=== PATIENT | female | born 1980 | race Caucasian/White ===

== ENCOUNTER 2022-11-23 02:52 | Emergency (ER) | payer BC ==
[~2022-11-23] VITALS: Ht 180.3 cm; Wt 98.6 kg
[2022-11-23 03:06] VITALS: BP 125/92
[2022-11-23] MEDS ORDERED: HYDROcodone/acetaminophen 10/325mg tab PO STA (03:11)
[2022-11-23] MEDS ORDERED: HYDROcodone/acetaminophen 5mg/325mg tablet PO ONE (03:50)
[2022-11-23] MEDS ORDERED: ibuprofen 200mg tablet PO ONE (03:50)
== END 2022-11-23 04:29 | disposition home or self-care (01) ==
LOC: ER 02:53
DX: M79.602 Pain in left arm (principal); M25.532 Pain in left wrist; Z72.89 Other problems related to lifestyle; Z79.899 Other long term (current) drug therapy; Z88.0 Allergy status to penicillin
CPT/HCPCS: 29125; 73110; 99283